=== PATIENT | male | born 1945 | race Caucasian/White ===

== ENCOUNTER 2022-05-30 18:26 | Inpatient (IN) | payer OTHER ==
[~2022-05-30] VITALS: Ht 182.9 cm; Wt 69.9 kg
[2022-05-30 19:27] LABS: Basophils # (auto) 0 10 ^3/uL (0-0.2); Basophils % (auto) 0.4 % (0.0-2.0); Eosinophils # (auto) 0 10 ^3/uL (0-0.8); Eosinophils % (auto) 0.1 % (0.0-7.0); Hematocrit 36.3 % (41.0-53.0); Hemoglobin 12.7 g/dL (13.5-17.5); Lymphocytes # (auto) 0.9 10 ^3/uL (0.4-5.4); Lymphocytes % (auto) 15.3 % (10.0-50.0); Mean Corpuscular Hemoglobin 31.5 pg (28.0-32.0); Monocytes # (auto) 0.4 10 ^3/uL (0-1.3); Monocytes % (auto) 6.7 % (0.0-12.0); Neutrophils # (auto) 4.3 10 ^3/uL (1.6-8.6); Neutrophils % (auto) 77.5 % (37.0-80.0); Nucleated Red Blood Cells % 0.2 %; Red Blood Cells 4.04 10^6/uL (4.5-5.90); Red Cell Distribution Width 13.5 % (11.8-14.3); White Blood Cell 5.6 10^3/uL (4.4-10.8)
[2022-05-30 19:45] LABS: Albumin 4.2 g/dL (3.4-5.0); BUN/Creatinine Ratio 15.4 (10.0-20.0); Calcium 9.3 mg/dL (8.5-10.1); Magnesium 2.3 mg/dL (1.6-2.6)
[2022-05-30 19:48] LABS: Bilirubin, Total 0.7 mg/dL (0.2-1.0); Total Protein 7.3 g/dL (6.4-8.2)
[2022-05-30] MEDS ORDERED: SODIUM CHLORIDE 0.9% 2,000 ML IV ONE (20:00)
[2022-05-30] MEDS ORDERED: HYDROcodone-ACET 5/325MG TAB PO PRN (22:30)
[2022-05-30] MEDS ORDERED: NITROGLYCERIN 0.4 MG SL TAB SL PRN (22:30)
[2022-05-30] MEDS ORDERED: DEXTROSE (50%) 50ML SYRG IV PRN (22:30)
[2022-05-30] MEDS ORDERED: MORPHINE SULFATE INJ 2 MG/ml SYRG IV PRN (22:30)
[2022-05-30] MEDS ORDERED: ACETAMINOPHEN 325 MG TAB PO PRN (22:30)
[2022-05-30] MEDS ORDERED: ONDANSETRON HCL 4 MG/2 ML VIAL IV PRN (22:30)
[2022-05-30] MEDS: SODIUM CHLORIDE 0.9% 1,000 ML IV SCH (22:30)
[2022-05-30] MEDS ORDERED: DOCUSATE SOD 100 MG CAP PO PRN (22:30)
[2022-05-31 05:51] LABS: Basophils # (auto) 0 10 ^3/uL (0-0.2); Basophils % (auto) 0.4 % (0.0-2.0); Eosinophils # (auto) 0 10 ^3/uL (0-0.8); Eosinophils % (auto) 0.1 % (0.0-7.0); Hematocrit 33.4 % (41.0-53.0); Hemoglobin 11.8 g/dL (13.5-17.5); Mean Corpuscular Hemoglobin 31.3 pg (28.0-32.0); Mean Corpuscular Hgb Conc. 35.2 g/dL (32.0-36.0); Mean Corpuscular Volume 88.8 fL (80.0-100.0); Monocytes # (auto) 0.3 10 ^3/uL (0-1.3); Monocytes % (auto) 6.8 % (0.0-12.0); Neutrophils # (auto) 3.5 10 ^3/uL (1.6-8.6); Neutrophils % (auto) 72.7 % (37.0-80.0); Red Blood Cells 3.77 10^6/uL (4.5-5.90); Red Cell Distribution Width 13.1 % (11.8-14.3); White Blood Cell 4.8 10^3/uL (4.4-10.8)
[2022-05-31 06:31] LABS: Potassium 5.1 mmol/L (3.5-5.1)
[2022-05-31 06:32] LABS: Urine Bacteria FEW /hpf (None Seen); Urine Blood Negative /uL (Negative); Urine Hyaline Cast FEW /lpf (0 - 2); Urine Specific Gravity 1.012 (1.001-1.035); Urine WBC 46 /hpf (0 - 3)
[2022-05-31 06:40] LABS: Albumin 3.8 g/dL (3.4-5.0); Bilirubin, Total 0.9 mg/dL (0.2-1.0); Calcium 8.9 mg/dL (8.5-10.1); Total Protein 6.6 g/dL (6.4-8.2)
[2022-05-31] MEDS: ACCU-CHEK COMFORT CURVE STRIP VI SCH ×4 (06:47→21:40)
[2022-05-31] MEDS: InsuLIN REG 1unit/0.01ml Soln (100units/ml) SC SCH ×4 (06:49→21:40)
[2022-05-31] MEDS: cefTRIAXone 1GM/50ML D5W 50 ML IV SCH ×2 (09:00→10:59)
[2022-05-31] MEDS: FAMOTIDINE (10MG/ML) 2ML VL IV SCH (10:36)
[2022-05-31] MEDS: ASPirin 81 mg TAB PO SCH (10:38)
[2022-05-31] MEDS ORDERED: ALBUTEROL SULF 2.5 MG/0.5ML(0.5%) NEB SOLN NEB PRN (12:15)
[2022-05-31] MEDS ORDERED: IPRATROPIUM BROM 0.5 MG/2.5ML INH SOL NEB PRN (12:15)
[2022-05-31 13:42] LABS: INR 1.03 (0.9-1.15); Partial Thromboplastin Time 27.1 sec (24.6-33.4)
[2022-05-31 13:57] LABS: Protein, Urine 33.7 mg/dL (0.0-11.9)
[2022-05-31 13:58] LABS: Amphetamine Screen, Urine NEGATIVE (NEGATIVE); Barbiturate Scree,Urine NEGATIVE (NEGATIVE); Benzodiazephine Screen, Urine NEGATIVE (NEGATIVE); Cannabinoid Screen, Urine NEGATIVE (NEGATIVE); Cocaine Screen, Urine NEGATIVE (NEGATIVE); Opiate Scree,Urine NEGATIVE (NEGATIVE); Phencyclidine Screen, Urine NEGATIVE (NEGATIVE); Sodium Urine 69 mmol/L (40-220)
[2022-05-31] MEDS: SODIUM CHLORIDE 0.9% 1,000 ML IV SCH (15:10)
[2022-05-31] MEDS ORDERED: TRIA0.02 TOP (19:29)
[2022-05-31] MEDS ORDERED: LOSA-69 PO (19:29)
[2022-05-31] MEDS ORDERED: ROSU1TAB14 PO (19:29)
[2022-05-31] MEDS: ATORVASTATIN 20 MG TAB PO SCH (21:44)
[2022-05-31 22:00] VITALS: BP 77/50
[2022-05-31 22:22] VITALS: BP 98/64
[2022-05-31 22:33] VITALS: BP 93/62
[2022-06-01 05:00] VITALS: BP 98/62
[2022-06-01 06:40] LABS: Basophils # (auto) 0 10 ^3/uL (0-0.2); Basophils % (auto) 0.4 % (0.0-2.0); Eosinophils # (auto) 0 10 ^3/uL (0-0.8); Eosinophils % (auto) 0.3 % (0.0-7.0); Hematocrit 30.3 % (41.0-53.0); Hemoglobin 10.6 g/dL (13.5-17.5); Lymphocytes # (auto) 1.3 10 ^3/uL (0.4-5.4); Lymphocytes % (auto) 31.8 % (10.0-50.0); Mean Corpuscular Hemoglobin 31.9 pg (28.0-32.0); Mean Corpuscular Hgb Conc. 34.9 g/dL (32.0-36.0); Mean Corpuscular Volume 91.5 fL (80.0-100.0); Monocytes # (auto) 0.4 10 ^3/uL (0-1.3); Monocytes % (auto) 8.7 % (0.0-12.0); Neutrophils # (auto) 2.5 10 ^3/uL (1.6-8.6); Neutrophils % (auto) 58.8 % (37.0-80.0); Red Blood Cells 3.31 10^6/uL (4.5-5.90); Red Cell Distribution Width 13.5 % (11.8-14.3); White Blood Cell 4.2 10^3/uL (4.4-10.8)
[2022-06-01] MEDS: ACCU-CHEK COMFORT CURVE STRIP VI SCH ×4 (06:50→22:31)
[2022-06-01] MEDS: InsuLIN REG 1unit/0.01ml Soln (100units/ml) SC SCH ×4 (06:50→22:00)
[2022-06-01 07:11] LABS: Potassium 4.3 mmol/L (3.5-5.1)
[2022-06-01 07:23] LABS: BUN/Creatinine Ratio 20.7 (10.0-20.0); Calcium 8.8 mg/dL (8.5-10.1)
[2022-06-01 08:00] VITALS: BP 108/60
[2022-06-01 09:00] VITALS: BP 108/60
[2022-06-01 09:55] LABS: Hepatitis B Surface Antibody Negative (Negative)
[2022-06-01 10:03] LABS: Hepatitis A Total Antibody Negative (Negative)
[2022-06-01] MEDS: cefTRIAXone 1GM/50ML D5W 50 ML IV SCH (10:25)
[2022-06-01] MEDS: FAMOTIDINE (10MG/ML) 2ML VL IV SCH (10:27)
[2022-06-01] MEDS: ASPirin 81 mg TAB PO SCH (10:27)
[2022-06-01 11:53] LABS: Hepatitis C Antibody Negative (Negative)
[2022-06-01 12:30] LABS: Folate (Folic Acid) 19.77 ng/mL (5.38-24)
[2022-06-01 13:00] VITALS: BP 100/62
[2022-06-01] MEDS: SODIUM BICARB 50ML SYR 50 ML in SOD CHL 0.45% 1,000 ML IV SCH ×3 (14:53→22:50)
[2022-06-01 16:54] VITALS: BP 108/61
[2022-06-01 22:00] VITALS: BP 112/74
[2022-06-01] MEDS: ATORVASTATIN 20 MG TAB PO SCH (22:31)
[2022-06-02 05:00] VITALS: BP 123/89
[2022-06-02 06:39] LABS: Basophils # (auto) 0 10 ^3/uL (0-0.2); Basophils % (auto) 0.4 % (0.0-2.0); Eosinophils # (auto) 0.1 10 ^3/uL (0-0.8); Eosinophils % (auto) 2.5 % (0.0-7.0); Hematocrit 30.8 % (41.0-53.0); Hemoglobin 10.8 g/dL (13.5-17.5); Lymphocytes # (auto) 1.5 10 ^3/uL (0.4-5.4); Lymphocytes % (auto) 39.3 % (10.0-50.0); Mean Corpuscular Hemoglobin 31.7 pg (28.0-32.0); Mean Corpuscular Hgb Conc. 35.1 g/dL (32.0-36.0); Mean Corpuscular Volume 90.1 fL (80.0-100.0); Monocytes # (auto) 0.2 10 ^3/uL (0-1.3); Monocytes % (auto) 5.6 % (0.0-12.0); Neutrophils % (auto) 52.2 % (37.0-80.0); Nucleated Red Blood Cells % 0.3 %; Red Blood Cells 3.42 10^6/uL (4.5-5.90); Red Cell Distribution Width 13.2 % (11.8-14.3); White Blood Cell 3.9 10^3/uL (4.4-10.8)
[2022-06-02] MEDS: SODIUM BICARB 50ML SYR 50 ML in SOD CHL 0.45% 1,000 ML IV SCH ×2 (06:45→10:43)
[2022-06-02] MEDS: ACCU-CHEK COMFORT CURVE STRIP VI SCH ×4 (06:47→22:12)
[2022-06-02] MEDS: InsuLIN REG 1unit/0.01ml Soln (100units/ml) SC SCH ×4 (06:47→22:00)
[2022-06-02 07:27] LABS: Albumin 3.3 g/dL (3.4-5.0); BUN/Creatinine Ratio 21.7 (10.0-20.0); Bilirubin, Total 0.8 mg/dL (0.2-1.0); Calcium 8.9 mg/dL (8.5-10.1); Total Protein 6.4 g/dL (6.4-8.2)
[2022-06-02 08:00] VITALS: BP 118/69
[2022-06-02 08:06] LABS: RPR Non Reactive (Non Reactive)
[2022-06-02] MEDS: cefTRIAXone 1GM/50ML D5W 50 ML IV SCH (08:25)
[2022-06-02] MEDS: ASPirin 81 mg TAB PO SCH (08:25)
[2022-06-02 08:30] VITALS: BP 118/69
[2022-06-02 12:34] VITALS: BP 122/74
[2022-06-02] MEDS ORDERED: CEPH-510 PO (13:57)
[2022-06-02 16:37] VITALS: BP 125/65
[2022-06-02] MEDS: ATORVASTATIN 20 MG TAB PO SCH (22:12)
[2022-06-02 22:53] VITALS: BP 122/70
[2022-06-03 05:21] VITALS: BP 104/64
[2022-06-03] MEDS: InsuLIN REG 1unit/0.01ml Soln (100units/ml) SC SCH ×2 (06:19→11:30)
[2022-06-03] MEDS: ACCU-CHEK COMFORT CURVE STRIP VI SCH ×2 (06:19→11:45)
[2022-06-03 09:00] VITALS: BP 102/65
[2022-06-03 09:51] LABS: Albumin 3.2 g/dL (3.4-5.0); Calcium 8.7 mg/dL (8.5-10.1); Potassium 3.8 mmol/L (3.5-5.1)
[2022-06-03] MEDS: cefTRIAXone 1GM/50ML D5W 50 ML IV SCH (09:52)
[2022-06-03] MEDS: ASPirin 81 mg TAB PO SCH (09:52)
[2022-06-03] MEDS: SODIUM BICARB 50ML SYR 50 ML in SOD CHL 0.45% 1,000 ML IV SCH ×2 (09:52→14:48)
[2022-06-03 09:55] LABS: BUN/Creatinine Ratio 15.2 (10.0-20.0); Bilirubin, Total 0.8 mg/dL (0.2-1.0); Total Protein 6.3 g/dL (6.4-8.2)
[2022-06-03 13:00] VITALS: BP 125/75
== END 2022-06-03 15:46 | disposition home or self-care (01) | DRG 682 ==
LOC: EDBD 18:26 → ER 18:26 → TELE 22:30 → TELE-CENTR 05-31 18:48 → CENTRAL 06-02 00:53
PROVIDERS: ADMIT Nurse Practitioner Family; ATTEND Internal Medicine
DX: N17.0 Acute kidney failure with tubular necrosis (principal); U07.1 COVID-19; E87.1 Hypo-osmolality and hyponatremia; N30.01 Acute cystitis with hematuria; D69.6 Thrombocytopenia, unspecified; I12.9 Hypertensive chronic kidney disease with stage 1 through stage 4 chronic kidney disease, or unspecified chronic kidney disease; E11.22 Type 2 diabetes mellitus with diabetic chronic kidney disease; N18.9 Chronic kidney disease, unspecified; R29.6 Repeated falls; R62.7 Adult failure to thrive; S09.90XA Unspecified injury of head, initial encounter; W18.39XA Other fall on same level, initial encounter; Z85.46 Personal history of malignant neoplasm of prostate; Z68.20 Body mass index [BMI] 20.0-20.9, adult; Y93.89 Activity, other specified; Y92.89 Other specified places as the place of occurrence of the external cause; Y99.8 Other external cause status
CPT/HCPCS: 36415; 70450; 71045; 76705; 76775; 80048; 80053; 80307; 81001; 82105; 82306; 82570; 82607; 82746; 82962; 83036; 83735; 83935; 83970; 84100; 84156; 84300; 84443; 84484; 85025; 85610; 85730; 86592; 86704; 86706; 86708; 86803; 87086; 87088; 87186; 87340; 87426; 93005; 96361; 96374; 97110; 97116; 97163; 97530; G0378; J0696; J3490

== ENCOUNTER 2024-04-21 15:45 | Inpatient (IN) | payer OTHER ==
[~2024-04-21] VITALS: Ht 172.7 cm; Wt 56.1 kg
[~2024-04-21 15:45] MED LIST: CEPH-510 PO; LOSA-534 PO; ROSU20TA56 PO; TRIA0.02 TOP
--- NOTE | 2024-04-21 15:53 | ED.PDOC ---
History of Present Illness HPI Comments M BIBA w/ no prior Hx associated to the c/c of low Blood Pressure. EMS report the pt was at the [facility] for a Cortisone injection on the right shoulder when the pt's Blood pressure was in the 80's. The facility called EMS and when EMS arrived on scene the pt informed EMS that he has been "eating less ". Currently the pt is 106/60. Pt reports that he drove to [place] w/ his friend in the vehicle, and states that he has been having LLQ pain where there is a hernia and admits to having a low HR. PMHx of CKD, Osteoporosis, High Lipids, CHF, Prostate Cancer, Enlarged Heart and DM. SHx of Prostate Cancer Sx, Cataract Sx, Tonsillectomy and Right Knee Sx. Family Hx of Cancer and Heart Caryl. Denies chills, fever, N/V/D, SOB, CP or other associated symptom's, modifiers, or recent injuries or sick contact at this time. Time Seen by MD: 15:45 Reviewed Notes: Nurses Notes, Medications, Allergies Allergies: Coded Allergies: NO KNOWN ALLERGIES (Unverified , 05/30/22) Home Meds Active Scripts Cephalexin ( Keflex 500) 500 Mg Cap, 1 CAP PO TID for 7 Days, #21 CAP Prov:ELICEO GRANT MD 06/02/22 Reported Medications Rosuvastatin Calcium (Rosuvastatin Calcium) 20 Mg Tab, 1 TAB PO 05/31/22 Losartan Potassium (Losartan Potassium) 50 Mg Tab, 1 TAB PO DAILY 05/31/22 Triamcinolone Acetonide (Triamcinolone Acetonide) 0.025 % Cre, TOP 05/31/22 Information Source: Patient, Emergency Med Personnel Mode of Arrival: EMS Severity: Moderate Timing: Minutes Duration: Since onset, Minutes Prehospital treatment: None Past Medical History PAST MEDICAL HISTORY: Cancer (Prostate), CHF, CKF, DM, High Lipids Past Medical History (Other): osteoporosis, Enlarged Heart Surgical History: Tonsillectomy Surgical History (Other): Cataract Sx, Prostate Cancer Sx, Right Knee Family History Family History: Reviewed,noncontributory to illness, Unknown Social History Smoker: Non-Smoker Alcohol: Denies ETOH Use Drugs: Denies Drug Use Lives In: Home Constitutional: reports: others (Low BP); denies: chills, diaphoresis, fatigue, fever, malaise, sweats, weakness EENTM: denies: blurred vision, double vision, ear bleeding, ear discharge, ear drainage, ear pain, ear ringing, eye pain, eye redness, hearing loss, mouth pain, mouth swelling, nasal discharge, nose bleeding, nose congestion, nose pain, photophobia, tearing, throat pain, throat swelling, voice changes, others Respiratory: denies: cough, hemoptysis, orthopnea, SOB at rest, shortness of breath, SOB with excertion, stridor, wheezing, others Cardiovascular: denies: chest pain, dizzy spells, diaphoresis, Dyspnea on exertion, edema, irregular heart beat, left arm pain, lightheadedness, palpitations, PND, syncope, others Gastrointestinal: reports: abdominal pain; denies: abdomen distended, blood streaked bowels, constipated, diarrhea, dysphagia, difficulty swallowing, hematemesis, melena, nausea, poor appetite, poor fluid intake, rectal bleeding, rectal pain, vomiting, others Genitourinary: denies: burning, dysuria, flank pain, frequency, hematuria, incontinence, penile discharge, penile sore, pain, testicle pain, testicle swelling, urgency, others Neurological: denies: dizziness, fainting, headache, left sided numbness, left sided weakness, numbness, paresthesia, pre-existing deficit, right sided numbness, right sided weakness, seizure, speech problems, tingling, tremors, weakness, others Musculoskeletal: denies: back pain, gout, joint pain, joint swelling, muscle pain, muscle stiffness, neck pain, others Integumetry: denies: bruises, change in color, change in hair/nails, dryness, laceration, lesions, lumps, rash, wounds, others Allergic/Immunocompromised: denies: Difficulty Healing, Frequent Infections, Hives, Itching, others Hematologic/Lymphatic: denies: anemia, blood clots, easy bleeding, easy bruising, swollen glands, others Endocrine: denies: excessive hunger, excessive sweating, excessive thirst, excessive urination, flushing, intolerance to cold, intolerance to heat, unexpla ined weight gain, unexplained weight loss, others Psychiatric: denies: anxiety, bipolar disorder, depression, hopeless, panic disorder, schizophrenia, sleepless, suicidal, others All Other Systems: Reviewed and Negative Physical Exam General Appearance: Moderate Distress HEENT: Normal ENT Inspection, Pharynx Normal, TMs Normal Neck: Full Range of Motion, Non-Tender, Normal, Normal Inspection Respiratory: Chest Non-Tender, Lungs Clear, No Accessory Muscle Use, No Respiratory Distress, Normal Breath Sounds Cardiovascular: Bradycardia, No Edema, No JVD, No Murmur, No Gallop Breast Exam: Deferred Gastrointestinal: No Organomegaly, Non Tender, No Pulsatile Mass, Normal Bowel Sounds, Soft Genitalia: Deferred Pelvic: Deferred Rectal: Deferred Extremities: No calf tenderness, Normal capillary refill, Normal inspection, Normal range of motion, Non-tender, No pedal edema Musculoskeletal : Apperance: Normal Neurologic: 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 Was a procedure done?: No EKG EKG : Pulse Rate (adult): 52 [place]: Normal Cardiac Rhythm: NSR Block: None Hypertrophy: None ST: Normal Differential Dx Considerations may include: Hypotension, generalized weakness, electrolyte imbalance X-Ray, Labs, Meds, VS Vital Signs Date Time Temp Pulse Resp B/P (MAP) Pulse Ox O2 Delivery O2 Flow Rate FiO2 04/21/24 16:43 52 18 95 Room Air* 0 21 04/21/24 15:59 98.4 54 16 112/70 (84) 97 04/21/24 15:53 52 Lab Test 04/21/24 17:17 04/21/24 16:03 Range/Units Troponin I High Sensitivity Pending 5 </=54 ng/L White Blood Count 4.5 4.4-10.8 10^3/uL Red Blood Count 3.24 L 4.5-5.90 10^6/uL Hemoglobin 10.5 L 13.5-17.5 g/dL Hematocrit 29.8 L 41.0-53.0 % Mean Corpuscular Volume 92.0 80.0-100.0 fL Mean Corpuscular Hemoglobin 32.3 H 28.0-32.0 pg Mean Corpuscular Hemoglobin Concent 35.1 32.0-36.0 g/dL Red Cell Distribution Width 12.4 11.8-14.3 % Platelet Count 112 L 140-450 10^3/uL Mean Platelet Volume 8.8 6.9-10.8 fL Neutrophils (%) (Auto) 55.5 37.0-80.0 % Lymphocytes (%) (Auto) 36.6 10.0-50.0 % Monocytes (%) (Auto) 4.7 0.0-12.0 % Eosinophils (%) (Auto) 2.2 0.0-7.0 % Basophils (%) (Auto) 1.0 0.0-2.0 % Neutrophils # (Auto) 2.5 1.6-8.6 10 ^3/uL Lymphocytes # (Auto) 1.7 0.4-5.4 10 ^3/uL Monocytes # (Auto) 0.2 0-1.3 10 ^3/uL Eosinophils # (Auto) 0.1 0-0.8 10 ^3/uL Basophils # (Auto) 0 0-0.2 10 ^3/uL Nucleated Red Blood Cells 0.1 % Sodium Level 141 136-145 mmol/L Potassium Level 4.0 3.5-5.1 mmol/L Chloride Level 108 H 98-107 mmol/L Carbon Dioxide Level 25 20-31 mmol/L Anion Gap 8 5-15 Blood Urea Nitrogen 36 H 9-23 mg/dL Creatinine 1.95 H 0.700-1.30 mg/dL Glomerular Filtration Rate Calc 34 >90 mL/min BUN/Creatinine Ratio 18.5 10.0-20.0 Serum Glucose 90 74-106 mg/dL Calcium Level 10.8 H 8.7-10.4 mg/dL The patient's CBC shows a hemoglobin of 10.5 and hematocrit of 29.8 The 1st troponin level is negative The chemistry panel shows a BUN of 36 and a creatinine of 1.95 The patient remained somewhat bradycardic with the weakness The patient was being admitted to the hospitalist The diagnosis is symptomatic bradycardia and hypotension We contacted [place] and they gave us authorization for admission secondary to the patient being unstable for transfer The authorization #[id number] Images Reviewed?: Images reviewed and evaluated by me Time of 1ST Reevaluation: 16:15 Reevaluation 1ST: Unchanged Patient Education/Counseling: Diagnosis, Treatment, Prognosis Family Education/Counseling: No Family Present Departure 1 Departure Time of Disposition: 17:57 Impression: Primary Impression: Hypotension Qualified Codes: I95.0 - Idiopathic hypotension Additional Impression: Symptomatic bradycardia Disposition: ADMITTED INPATIENT Admit to: Tele Condition: Fair Critical Care Note Critical Care Time?: No Stability Stability form required: Yes Unstable for transfer: Telemetry monitoring (Telemetry monitoring required), ED Physician Assesment (Clinical assesment) Heart Score Heart Score: Heart Score Response (Comments) Value History N/A 0 EKG N/A 0 Age N/A 0 Risk Factors N/A 0 Troponin N/A 0 Total 0 I personally scribed for ALCIDES DIAZ MD ([email or web address]) on 04/21/24 at 15:53. Electronically submitted by Jermaine Ortiz ([email or web address]). ALCIDES DIAZ MD Apr 21, 2024 15:53
[2024-04-21 16:32] LABS: Basophils # (auto) 0 10 ^3/uL (0-0.2); Eosinophils # (auto) 0.1 10 ^3/uL (0-0.8); Eosinophils % (auto) 2.2 % (0.0-7.0); Hematocrit 29.8 % (41.0-53.0); Hemoglobin 10.5 g/dL (13.5-17.5); Lymphocytes # (auto) 1.7 10 ^3/uL (0.4-5.4); Lymphocytes % (auto) 36.6 % (10.0-50.0); Mean Corpuscular Hemoglobin 32.3 pg (28.0-32.0); Mean Corpuscular Hgb Conc. 35.1 g/dL (32.0-36.0); Monocytes # (auto) 0.2 10 ^3/uL (0-1.3); Monocytes % (auto) 4.7 % (0.0-12.0); Neutrophils # (auto) 2.5 10 ^3/uL (1.6-8.6); Neutrophils % (auto) 55.5 % (37.0-80.0); Nucleated Red Blood Cells % 0.1 %; Platelet Count (auto) 112 10^3/uL (140-450); Red Blood Cells 3.24 10^6/uL (4.5-5.90); Red Cell Distribution Width 12.4 % (11.8-14.3); White Blood Cell 4.5 10^3/uL (4.4-10.8)
[2024-04-21 16:34] LABS: Sodium 141 mmol/L (136-145)
[2024-04-21 16:35] LABS: Anion Gap 8 (5-15); Carbon Dioxide 25 mmol/L (20-31)
[2024-04-21 16:40] LABS: BUN/Creatinine Ratio 18.5 (10.0-20.0); Glucose 90 mg/dL (74-106)
[2024-04-21 16:43] VITALS: PULSE 52; RESP 18; O2SAT 95
[2024-04-21 16:46] LABS: Blood Urea Nitrogen 36 mg/dL (9-23); Calcium 10.8 mg/dL (8.7-10.4); Chloride 108 mmol/L (98-107)
[2024-04-21] MEDS: SODIUM CHLORIDE 0.9% 500 ML IV ONE (18:00)
[2024-04-21 18:07] VITALS: PULSE 60; RESP 18; O2SAT 99
--- NOTE | 2024-04-21 19:58 | ECG ---
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
[2024-04-21] MEDS ORDERED: HYDROcodone-ACET 5/325MG TAB PO PRN (20:00)
[2024-04-21] MEDS ORDERED: ACETAMINOPHEN 325 MG TAB PO PRN (20:00)
[2024-04-21] MEDS ORDERED: DOCUSATE SOD 100 MG CAP PO PRN (20:00)
[2024-04-21] MEDS ORDERED: ONDANSETRON HCL 4 MG/2 ML VIAL IV PRN (20:00)
[2024-04-21] MEDS ORDERED: DEXTROSE (50%) 50ML SYRG IV PRN (20:45)
[2024-04-21 21:00] VITALS: PULSE 60; RESP 16; O2SAT 98
--- NOTE | 2024-04-21 21:37 | DVHHP2 ---
History of Present Illness Reason for Visit: Symptomatic bradycardia History of Present Illness The patient is a 78-year-old male with multiple past medical history including prostate cancer, CHF, DM, and hyperlipidemia who presented to [facility] ED with complaint of low blood pressure. Patient reports has been e xperiencing left lower quadrant abdominal pain. Patient was seen and evaluated in the ED, laboratory data shows WBC 4.5, hemoglobin 10.5, hematocrit 29.8, platelets 112, sodium 141, potassium 4.0, BUN 36, creatinine 1.95, GFR 34, glucose 90, troponin 5, blood pressure 115/70, heart rate 52 trending up to 67, temperature 98.6 F, O2 saturation 99% on oxygen. Patient was given IV fluid normal saline, please see medication orders section in the computer. On my assessment, patient denies chest pain, no headache, no dizziness, no diaphoresis, no loss of consciousness, no diarrhea, no nausea, no vomiting, no fever, no chills. Patient was admitted for further evaluation and medical management. Past Medical History Cancer (Prostate), CHF, CKF, DM, High Lipids, osteoporosis, Enlarged Heart Past Surgical History Tonsillectomy, Cataract Sx, Prostate Cancer Sx, Right Knee surgery Family History Reviewed, noncontributory to the management of this case. Past Social History The patient lives at home, denies smoking, alcohol or illicit drugs abuse. Review of Systems Constitutional: Yes: Weakness; No: Fever, Chills, Sweats, Malaise, Other Eyes: No: Pain, Vision change, Conjunctivae inflammation, Eyelid inflammation, Other, Redness ENT: No: Ear pain, Ear discharge, Nose pain, Nose discharge, Nose congestion, Mouth pain, Mouth swelling, Throat pain, Throat swelling, Other Respiratory: No: Cough, Dry, Shortness of breath, SOB with excertion, Wheezing, Hemoptysis, Pleuritic Pain, Sputum, Wheezing, Other Cardiovascular: Other (Hypotension); No: Chest Pain, Palpitations, Orthopnea, Paroxysmal Noc. Dyspnea, Edema, Lt Headedness Gastrointestinal: Abdominal Pain; No: Nausea, Vomiting, Diarrhea, Constipation, Melena, Hematochezia, Other Genitourinary: No Dysuria, No Frequency, No Incontinence, No Hematuria, No Retention, No Other Musculoskeletal: No: other, neck pain, shoulder pain, arm pain, back pain, hand pain, leg pain, foot pain Skin: No: Rash, Lesions, Jaundice, Bruising, Other Neurological: No: Weakness, Numbness, Incoordination, Change in speech, Confusion, Seizures, Other Allergies: Coded Allergies: NO KNOWN ALLERGIES (Unverified , 05/30/22) Medications Current Medications Medications Dose Ordered Sig/Irma Route Start Time Stop Time Status Last Admin Dose Admin Atorvastatin Calcium 10 mg HS PO 04/21/24 22:00 Aspirin 81 mg DAILY PO 04/22/24 10:00 Sodium Chloride 10 ml Q8HR IV 04/21/24 22:00 Acetaminophen/ Hydrocodone Bitart 1 tab Q4HP PRN PO 04/21/24 20:00 Ondansetron HCl 4 mg Q4HP PRN IV 04/21/24 20:00 Docusate Sodium 100 mg BIDPRN PRN PO 04/21/24 20:00 Acetaminophen 650 mg Q6HP PRN PO 04/21/24 20:00 Diagnostic Test (Pha) 1 strip ACHS 04/21/24 22:00 Insulin Human Regular ACHS SC 04/21/24 22:00 Dextrose 50 ml UD PRN IV 04/21/24 20:45 Exam Vital Signs Vital Signs Date Time Temp Pulse Resp B/P (MAP) Pulse Ox O2 Delivery O2 Flow Rate FiO2 04/21/24 20:30 98.1 70 17 124/76 (92) 94 98.1 04/21/24 18:07 Room Air* 0 21 General Appearance: Alert, Oriented X3, Cooperative, No acute distress HEENT: Atraumatic, PERRLA, EOMI, Mucous membr. moist/pink Respiratory: Clear to auscultation, Normal air movement Cardiovascular: Regular rate, Normal S1, Normal S2, No murmurs Abdominal: Normal bowel sounds, Soft, No tenderness, No hepatospenomegaly, No masses Extremities: No clubbing, No cyanosis, No edema, Normal pulses, No tenderness/swelling Skin: No rashes, No breakdown, No significant lesion Neuro: Normal speech, Normal tone, Sensation intact, Cranial nerves 3-12 NL, Reflexes 2+, Other (Generalized weakness) Psych/Mental Status: Mental status NL, Mood NL Labs/Xrays Labs Test 04/21/24 17:17 04/21/24 16:03 Range/Units Troponin I High Sensitivity 5 </=54 ng/L White Blood Count 4.5 4.4-10.8 10^3/uL Red Blood Count 3.24 L 4.5-5.90 10^6/uL Hemoglobin 10.5 L 13.5-17.5 g/dL Hematocrit 29.8 L 41.0-53.0 % Mean Corpuscular Volume 92.0 80.0-100.0 fL Mean Corpuscular Hemoglobin 32.3 H 28.0-32.0 pg Mean Corpuscular Hemoglobin Concent 35.1 32.0-36.0 g/dL Red Cell Distribution Width 12.4 11.8-14.3 % Platelet Count 112 L 140-450 10^3/uL Mean Platelet Volume 8.8 6.9-10.8 fL Neutrophils (%) (Auto) 55.5 37.0-80.0 % Lymphocytes (%) (Auto) 36.6 10.0-50.0 % Monocytes (%) (Auto) 4.7 0.0-12.0 % Eosinophils (%) (Auto) 2.2 0.0-7.0 % Basophils (%) (Auto) 1.0 0.0-2.0 % Neutrophils # (Auto) 2.5 1.6-8.6 10 ^3/uL Lymphocytes # (Auto) 1.7 0.4-5.4 10 ^3/uL Monocytes # (Auto) 0.2 0-1.3 10 ^3/uL Eosinophils # (Auto) 0.1 0-0.8 10 ^3/uL Basophils # (Auto) 0 0-0.2 10 ^3/uL Nucleated Red Blood Cells 0.1 % Sodium Level 141 136-145 mmol/L Potassium Level 4.0 3.5-5.1 mmol/L Chloride Level 108 H 98-107 mmol/L Carbon Dioxide Level 25 20-31 mmol/L Anion Gap 8 5-15 Blood Urea Nitrogen 36 H 9-23 mg/dL Creatinine 1.95 H 0.700-1.30 mg/dL Glomerular Filtration Rate Calc 34 >90 mL/min BUN/Creatinine Ratio 18.5 10.0-20.0 Serum Glucose 90 74-106 mg/dL Calcium Level 10.8 H 8.7-10.4 mg/dL B-Type Natriuretic Peptide 73.75 0-100 pg/mL Assessment/Plan Assessment/Plan Generalized weakness Hypotension, unspecified Hypotension Idiopathic hypotension Acute renal injury Symptomatic bradycardia Plan 1. Admit to telemetry unit 2. Breathing treatment 3. Pain control management 4. Management of fluids and electrolytes 5. Consultation for hospitalist 6. Diagnostic tests chest x-ray 7. DVT prophylaxis-on aspirin 8. Repeat labs CBC, CMP in a.m. 9. Continue with current medical management 10. Treatment plan discussed with patient and RN. Patient verbalized understanding. Plan discussed with: Patient, Other (RN) My Orders Orders - LESLYE JUAREZ DNP Procedure Category Date Status Time Atorvastatin (Lipitor) PHA 04/21/24 In Process 22:00 Aspirin Tablet PHA 04/22/24 In Process 10:00 Allergies KENNY 04/21/24 In Process 19:51 Code Status CODE 04/21/24 Transmitted 19:51 Sodium Chloride Lock PHA 04/21/24 In Process (Saline Lock Ns) 22:00 Oxygen Per Hour RT 04/21/24 Transmitted 19:51 Hydrocodone-Acet PHA 04/21/24 In Process 5/325mg Tab ([place] 20:00 Ondansetron Hcl PHA 04/21/24 In Process (Zofran) 20:00 Docusate Sodium PHA 04/21/24 In Process Capsule ([place] 20:00 Complete Blood Count LAB 04/22/24 Verified 04:00 Comprehensive LAB 04/22/24 Verified Metabolic Panel 04:00 Cardiac DIET 04/22/24 Transmitted Diet-2gna,Lofat,Lochol Breakfast Condition: Serious KENNY 04/21/24 In Process 19:51 Acetaminophen Tablet PHA 04/21/24 In Process (Tylenol Tablet) 20:00 Bedrest With Bathroom KENNY 04/21/24 In Process Privileg 19:51 Sequential KENNY 04/21/24 In Process Compression Device *[facility]. [facility] CONS 04/21/24 Transmitted -[place] 19:51 * Cardiology Consult CONS 04/21/24 Transmitted 19:54 Glucose Blood PHA 04/21/24 In Process (Accu-Chek Comfort 22:00 Insulin R (Human) PHA 04/21/24 In Process (Insulin R) 22:00 Dextrose 50% Syringe PHA 04/21/24 In Process 20:45 Problem List: (1) Generalized weakness (2) Hypotension (3) Idiopathic hypotension (4) Hypotension, unspecified (5) Acute renal injury (6) Symptomatic bradycardia Date of Service: Apr 21, 2024 Billing Provider: LESLYE JUAREZ DNP Common Visit Codes: 95188-XQGJBQI INP/OBS CARE (HIGH) LESLYE JUAREZ DNP Apr 21, 2024 21:37
[2024-04-21 21:44] LABS: Urine Bacteria None Seen /hpf (None Seen)
[2024-04-21] MEDS ORDERED: NITROGLYCERIN 0.4 MG SL TAB SL PRN (21:45)
[2024-04-21] MEDS ORDERED: MORPHINE SULFATE INJ 2 MG/ml SYRG IV PRN (21:45)
[2024-04-21 21:57] LABS: Urine Blood 3+ /uL (Negative); Urine Clarity Clear (Clear); Urine Color Light-Yellow (Yellow); Urine Hyaline Cast FEW /lpf (0 - 2); Urine Protein, UAD 3+ (Negative); Urine Specific Gravity 1.016 (1.001-1.035); Urine Squamous Epithelial Cell FEW /hpf (<5); Urine Urobilinogen Normal (Negative); Urine WBC 2 /HPF (0-3)
[2024-04-21] MEDS: InsuLIN REG 1unit/0.01ml Soln (100units/ml) SC SCH (22:00)
[2024-04-21] MEDS: SODIUM CHLOR 0.9% PF (SALINE LOCK) 10ML VIAL/SYR IV SCH (22:02)
[2024-04-21] MEDS: ACCU-CHEK COMFORT CURVE STRIP VI SCH (22:04)
[2024-04-21] MEDS: ATORVASTATIN 20 MG TAB PO SCH (22:04)
[2024-04-21 23:50] VITALS: BP 107/71; PULSE 70; RESP 18; TEMP 97.2; O2SAT 92
[2024-04-22] VITALS (9 sets, daily range): BP systolic 100–141; BP diastolic 60–72; PULSE 51–70; RESP 16–20; TEMP 97.2–98.1; O2SAT 92–98
[2024-04-22 06:35] LABS: Basophils # (auto) 0 10 ^3/uL (0-0.2); Eosinophils # (auto) 0.1 10 ^3/uL (0-0.8); Hematocrit 28.4 % (41.0-53.0); Hemoglobin 9.9 g/dL (13.5-17.5); Lymphocytes # (auto) 1.8 10 ^3/uL (0.4-5.4); Lymphocytes % (auto) 44.3 % (10.0-50.0); Mean Corpuscular Hemoglobin 32.3 pg (28.0-32.0); Mean Corpuscular Hgb Conc. 34.9 g/dL (32.0-36.0); Mean Corpuscular Volume 92.7 fL (80.0-100.0); Monocytes # (auto) 0.2 10 ^3/uL (0-1.3); Monocytes % (auto) 5.1 % (0.0-12.0); Neutrophils # (auto) 1.9 10 ^3/uL (1.6-8.6); Neutrophils % (auto) 46.6 % (37.0-80.0); Nucleated Red Blood Cells % 0.1 %; Platelet Count (auto) 94 10^3/uL (140-450); Red Blood Cells 3.07 10^6/uL (4.5-5.90); Red Cell Distribution Width 12.6 % (11.8-14.3); White Blood Cell 4.1 10^3/uL (4.4-10.8)
[2024-04-22 06:52] LABS: Anion Gap 9 (5-15); BUN/Creatinine Ratio 17.2 (10.0-20.0); Carbon Dioxide 23 mmol/L (20-31); Glucose 80 mg/dL (74-106); Potassium 3.9 mmol/L (3.5-5.1); Sodium 143 mmol/L (136-145)
[2024-04-22 06:53] LABS: Bilirubin, Total 0.6 mg/dL (0.2-1.0)
[2024-04-22 06:55] LABS: Alanine Aminotransferase 73 U/L (7-40); Albumin 4.1 g/dL (3.2-4.8); Alkaline Phosphatase 30 U/L (46-116); Aspartate Aminotransferase 51 U/L (13-40); Blood Urea Nitrogen 33 mg/dL (9-23); Chloride 111 mmol/L (98-107)
[2024-04-22] MEDS: ASPirin 81 mg TAB PO SCH (09:32)
[2024-04-22] MEDS ORDERED: GLUCAGON EMERG KIT 1mg/1ml IV ONE (11:45)
--- NOTE | 2024-04-22 12:00 | DVHINCON2 ---
Date Seen: Apr 22, 2024 Referring Physician UYEN Riddle Reason for Consultation Hypotension History of Present Illness This is a pleasant 78-year-old man who presented to the emergency room via EMS with a chief complaint of hypotension. The patient reports he was a local [facility] acquiring a cortisone injection of the right shoulder when he was found with a systolic blood pressure of 88 mmHg. Upon arrival to the emergency room he underwent a 12 lead electrocardiogram revealing a sinus bradycardia rhythm with an associated first-degree atrioventricular block at 52 bpm. nurse monitoring reviewed indicating a sinus bradycardia rhythm as low as 48 bpm without evidence of high-degree atrioventricular blocks or sinus pauses. The patient is currently taking losartan 25 q.d. and bisoprolol 5 mg b.i.d. Denies chest pain, palpitations, blurry vision, HAs, or syncopal events. Complains of positional dizziness from a sitting to standing position during the past two days. He also complains of mid abdominal pain without N/V/D/constipation. Significant medical history includes congestive heart failure, pof-rbastjb-pdavcxoot diabetes mellitus, hypertension, dyslipidemia, chronic thrombocytopenia, chronic kidney disease, arthritis, and umbilical hernia. Past Medical History Past medical history reviewed. No other significant than mentioned above. Past Surgical History Cataracts Prostate Right knee Tonsillectomy Family History: Cardiovascular disease G8 FATHER, FH: cancer G8 MOTHER, Family History Family history reviewed. Social History Denies the use of illicit drugs, alcohol, or tobacco use. Allergies: Coded Allergies: NO KNOWN ALLERGIES (Unverified , 05/30/22) Home Meds Active Scripts Cephalexin ( Keflex 500) 500 Mg Cap, 1 CAP PO TID for 7 Days, #21 CAP Prov:ELICEO GRANT MD 06/02/22 Reported Medications Rosuvastatin Calcium (Rosuvastatin Calcium) 20 Mg Tab, 1 TAB PO 05/31/22 Losartan Potassium (Losartan Potassium) 50 Mg Tab, 1 TAB PO DAILY 05/31/22 Discontinued Reported Medications Triamcinolone Acetonide (Triamcinolone Acetonide) 0.025 % Cre, TOP 05/31/22 Home Meds Home medications reviewed. Current Medications Current Medications Medications (Trade) Dose Ordered Sig/Irma Route PRN Reason Start Time Stop Time Status Last Admin Atorvastatin Calcium (Lipitor) 10 mg HS PO 04/21/24 22:00 04/21/24 22:04 Aspirin 81 mg DAILY PO 04/22/24 10:00 04/22/24 09:32 Sodium Chloride (Saline Lock Ns) 10 ml Q8HR IV 04/21/24 22:00 04/22/24 06:12 Acetaminophen/ Hydrocodone Bitart (Wilson 5/325MG Tab) 1 tab Q4HP PRN PO MODERATE PAIN (4-6 PAIN SCALE) 04/21/24 20:00 Ondansetron HCl (Zofran) 4 mg Q4HP PRN IV NAUSEA / VOMITING 04/21/24 20:00 Docusate Sodium (Colace Capsule) 100 mg BIDPRN PRN PO FOR CONSTIPATION 04/21/24 20:00 Acetaminophen (Tylenol Tablet) 650 mg Q6HP PRN PO PAIN SCALE 1-3 OR TEMP>100.4 04/21/24 20:00 Diagnostic Test (Pha) (Accu-Chek Comfort Curve T) 1 strip ACHS 04/21/24 22:00 04/22/24 06:29 Insulin Human Regular (InsuLIN R) ACHS SC 04/21/24 22:00 Dextrose 50 ml UD PRN IV Blood Sugar LESS THAN 60 04/21/24 20:45 Nitroglycerin (Ntrostat Sublingual) 0.4 mg Q5MINP PRN SL FOR CHEST PAIN 04/21/24 21:45 Morphine Sulfate 2 mg Q30M PRN IV FOR CHEST PAIN 04/21/24 21:45 Review of Systems Constitutional: No symptom reported Ears, Nose, & Throat: No symptom reported Eyes: No symptom reported Neurological: Positional dizziness Pulmonary/Respiratory: No symptom reported Cardiovascular: No symptom reported Gastrointestinal: Mid abdominal pain Genitourinary: No symptom reported Musculoskeletal: No symptom reported Skin: No symptom reported Psychiatric: No symptom reported Endocrine: No symptom reported Hemotologic/Lymphatic: No symptom reported Vital Signs Vital Signs Date Time Temp Pulse Resp B/P (MAP) Pulse Ox O2 Delivery O2 Flow Rate FiO2 04/22/24 09:00 98.1 53 16 101/61 (74) 95 98.1 04/22/24 00:09 Room Air* 0 21 Physical Exam General Appearance: Cooperative. Well developed. Thin. In no acute distress Head Exam: Normal inspection Neck Exam: Normal inspection. Non-tender. Normal alignment Pulmonary/Respiratory: Chest non-tender. Clear bilateral breath sounds Cardiovascular/Chest: Regular rate and rhythm. S1, S2. Sinus bradycardia with associated first-degree AV block. No murmurs. No JVD. Peripheral Pulses: 2+ Radial (R). 2+ Radial (L). 2+ Pedal (R). 2+ Pedal (L) Abdominal Exam: Normal bowel sounds. Soft. Nontender. No hepatospenomegaly. No masses Ankle Exam: Negative ankle edema Lower extremities: Negative lower extremity edema Neuro/Mental Status: A&O x4. Coherent Thoughts/Psych: Normal thought pattern. Appropriate mood and affect. Good judgement and insight Appearance: In no acute distress Skin Exam: Normal inspection. Pale color. Warm. Dry Labs/Diagnostic Data Labs Test 04/22/24 05:50 04/22/24 05:42 04/21/24 17:17 04/21/24 16:03 Range/Units POC Glucose 80 70-106 mg/dl White Blood Count 4.1 L 4.4-10.8 10^3/uL Red Blood Count 3.07 L 4.5-5.90 10^6/uL Hemoglobin 9.9 L 13.5-17.5 g/dL Hematocrit 28.4 L 41.0-53.0 % Mean Corpuscular Volume 92.7 80.0-100.0 fL Mean Corpuscular Hemoglobin 32.3 H 28.0-32.0 pg Mean Corpuscular Hemoglobin Concent 34.9 32.0-36.0 g/dL Red Cell Distribution Width 12.6 11.8-14.3 % Platelet Count 94 L 140-450 10^3/uL Mean Platelet Volume 8.4 6.9-10.8 fL Neutrophils (%) (Auto) 46.6 37.0-80.0 % Lymphocytes (%) (Auto) 44.3 10.0-50.0 % Monocytes (%) (Auto) 5.1 0.0-12.0 % Eosinophils (%) (Auto) 3.0 0.0-7.0 % Basophils (%) (Auto) 1.0 0.0-2.0 % Neutrophils # (Auto) 1.9 1.6-8.6 10 ^3/uL Lymphocytes # (Auto) 1.8 0.4-5.4 10 ^3/uL Monocytes # (Auto) 0.2 0-1.3 10 ^3/uL Eosinophils # (Auto) 0.1 0-0.8 10 ^3/uL Basophils # (Auto) 0 0-0.2 10 ^3/uL Nucleated Red Blood Cells 0.1 % Sodium Level 143 136-145 mmol/L Potassium Level 3.9 3.5-5.1 mmol/L Chloride Level 111 H 98-107 mmol/L Carbon Dioxide Level 23 20-31 mmol/L Anion Gap 9 5-15 Blood Urea Nitrogen 33 H 9-23 mg/dL Creatinine 1.92 H 0.700-1.30 mg/dL Glomerular Filtration Rate Calc 35 >90 mL/min BUN/Creatinine Ratio 17.2 10.0-20.0 Serum Glucose 80 74-106 mg/dL Calcium Level 10.0 8.7-10.4 mg/dL Total Bilirubin 0.6 0.2-1.0 mg/dL Aspartate Amino Transferase (AST) 51 H 13-40 U/L Alanine Aminotransferase (ALT) 73 H 7-40 U/L Alkaline Phosphatase 30 L 46-116 U/L Total Protein 6.0 5.7-8.2 g/dL Albumin 4.1 3.2-4.8 g/dL Troponin I High Sensitivity 5 </=54 ng/L B-Type Natriuretic Peptide 73.75 0-100 pg/mL Test 04/21/24 14:49 Range/Units Urine Color Light-yellow Yellow Urine Clarity Clear Clear Urine pH 6.0 5.0-9.0 Urine Specific [place] 1.016 1.001-1.035 Urine Protein 3+ H Negative Urine Ketones 1+ H Negative Urine Blood 3+ H Negative /uL Urine Nitrite Negative Negative Urine Bilirubin Negative Negative Urine Urobilinogen Normal Negative mg/dL Urine Leukocyte Esterase Negative Negative /uL Urine RBC 34 0 - 3 /hpf Urine Microscopic WBC 2 0-3 /HPF Urine Squamous Epithelial Cells Few <5 /hpf Urine Bacteria None seen None Seen /hpf Urine Hyaline Casts Few 0 - 2 /lpf Urine Glucose 1+ H Normal mg/dL Assessment 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 Jama) The patient presents with likely beta-jonathan induced bradycardia and antihypertensive therapy induced hypotension. We reccommend discontinuation of home losartan therapy and bisoprolol. Initiate glucagon therapy and obtain a transthoracic echocardiogram to rule out structural heart disease. The patient appears euvolemic at this time. Obtain TSH level. In the setting of an unremarkable echocardiogram, there is no further cardiac workup indicated at this time. If patient continues symptomatic after discontinuation of antihypertensive therapy, we recommend an outpatient event monitor and BP log for further evaluation. Thank you for allowing us to participate in this patient's care. Please call if you have any questions or concerns. This medical document was created using an electronic medical record system with voice recognition software and computerized dictation system. Although this document has been carefully reviewed, there might still be some phonetic and typographical errors. Occasional wrong-word or ``sound-alike substitutions may have occurred due to the inherent limitations of voice recognition software. These areas are purely typographical due to imperfections of the software programs and do not reflect any compromise in the patient's medical care. Please read the chart carefully and recognize, using context, where these substitutions have occurred. Plan discussed with: Patient, Other NYHA Physical activity limitations: NA Date of Service: Apr 22, 2024 Billing Provider: SARAH TONY Cardiology Common Codes: [id number] INP/OBS CARE (High) SARAH TONY Apr 22, 2024 12:00
--- NOTE | 2024-04-22 16:14 | DVHDS2 ---
Discharge Summary Date of Admission Apr 21, 2024 at 21:35 Date of Discharge: Apr 22, 2024 Labs/Diagnostic Data: Laboratory Results Test 04/22/24 11:48 04/22/24 05:42 04/21/24 17:17 04/21/24 16:03 POC Glucose 110 mg/dl (70-106) White Blood Count 4.1 10^3/uL (4.4-10.8) Red Blood Count 3.07 10^6/uL (4.5-5.90) Hemoglobin 9.9 g/dL (13.5-17.5) Hematocrit 28.4 % (41.0-53.0) Mean Corpuscular Volume 92.7 fL (80.0-100.0) Mean Corpuscular Hemoglobin 32.3 pg (28.0-32.0) Mean Corpuscular Hemoglobin Concent 34.9 g/dL (32.0-36.0) Red Cell Distribution Width 12.6 % (11.8-14.3) Platelet Count 94 10^3/uL (140-450) Mean Platelet Volume 8.4 fL (6.9-10.8) Neutrophils (%) (Auto) 46.6 % (37.0-80.0) Lymphocytes (%) (Auto) 44.3 % (10.0-50.0) Monocytes (%) (Auto) 5.1 % (0.0-12.0) Eosinophils (%) (Auto) 3.0 % (0.0-7.0) Basophils (%) (Auto) 1.0 % (0.0-2.0) Neutrophils # (Auto) 1.9 10 ^3/uL (1.6-8.6) Lymphocytes # (Auto) 1.8 10 ^3/uL (0.4-5.4) Monocytes # (Auto) 0.2 10 ^3/uL (0-1.3) Eosinophils # (Auto) 0.1 10 ^3/uL (0-0.8) Basophils # (Auto) 0 10 ^3/uL (0-0.2) Nucleated Red Blood Cells 0.1 % Sodium Level 143 mmol/L (136-145) Potassium Level 3.9 mmol/L (3.5-5.1) Chloride Level 111 mmol/L (98-107) Carbon Dioxide Level 23 mmol/L (20-31) Anion Gap 9 (5-15) Blood Urea Nitrogen 33 mg/dL (9-23) Creatinine 1.92 mg/dL (0.700-1.30) Glomerular Filtration Rate Calc 35 mL/min (>90) BUN/Creatinine Ratio 17.2 (10.0-20.0) Serum Glucose 80 mg/dL (74-106) Hemoglobin A1c 4.8 % A1C (<5.7) Calcium Level 10.0 mg/dL (8.7-10.4) Magnesium Level 2.0 mg/dL (1.6-2.6) Total Bilirubin 0.6 mg/dL (0.2-1.0) Aspartate Amino Transferase (AST) 51 U/L (13-40) Alanine Aminotransferase (ALT) 73 U/L (7-40) Alkaline Phosphatase 30 U/L (46-116) Total Protein 6.0 g/dL (5.7-8.2) Albumin 4.1 g/dL (3.2-4.8) Thyroid Stimulating Hormone (TSH) 0.79 uIU/mL (0.55-4.78) Troponin I High Sensitivity 5 ng/L (</=54) B-Type Natriuretic Peptide 73.75 pg/mL (0-100) Test 04/21/24 14:49 Urine Color Light-yellow (Yellow) Urine Clarity Clear (Clear) Urine pH 6.0 (5.0-9.0) Urine Specific [place] 1.016 (1.001-1.035) Urine Protein 3+ (Negative) Urine Ketones 1+ (Negative) Urine Blood 3+ /uL (Negative) Urine Nitrite Negative (Negative) Urine Bilirubin Negative (Negative) Urine Urobilinogen Normal mg/dL (Negative) Urine Leukocyte Esterase Negative /uL (Negative) Urine RBC 34 /hpf (0 - 3) Urine Microscopic WBC 2 /HPF (0-3) Urine Squamous Epithelial Cells Few /hpf (<5) Urine Bacteria None seen /hpf (None Seen) Urine Hyaline Casts Few /lpf (0 - 2) Urine Glucose 1+ mg/dL (Normal) Other Laboratory Tests 04/22/24 05:42 Brief Hx & Hospital Course: HPI: 78-year-old male with multiple past medical history including congestive heart failure, lec-nmspxmu-oefdyjeru diabetes mellitus, hypertension, dyslipidemia, chronic thrombocytopenia, chronic kidney disease, arthritis, and umbilical hernia; Presents to [facility] ED with complaint of low blood pressure. The patient reports he was a local [facility] acquiring a cortisone injection of the right shoulder when he was found with a systolic blood pressure of 88 mmHg. Denies chest pain, palpitations, blurry vision, HAs, or syncopal events. Complains of positional dizziness from a sitting to standing position during the past two days. He also complains of mid abdominal pain without N/V/D/constipation. summary: Upon arrival to the emergency room he underwent a 12 lead electrocardiogram revealing a sinus bradycardia rhythm with an associated first- degree atrioventricular block at 52 bpm. Labs are notable for platelets 112, creatinine 1.95 likely CKD, heart rate in 50s. supervisor evaporator reviewed indicating a sinus bradycardia rhythm as low as 48 bpm without evidence of high- degree atrioventricular blocks or sinus pauses. The patient is currently taking losartan 25 q.d. and bisoprolol 5 mg b.i.d. cardiology consulted for symptomatic bradycardia. Patient was given glucagon IV 2 mg once, continuing home meds. Beta-blockers and antihypertensives are hold, washout. Results in improvement of symptoms and heart rate. Cardiology recommends discontinuing beta-jonathan and antihypertensives. Patient improves with sinus signs stable. Stable for discharge with plan below. 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 Medication induced hypotension Hx congestive heart failure Dmo-iarbjht-aduoqfnid diabetes mellitus Hypertension Dyslipidemia Chronic thrombocytopenia Chronic kidney disease Anemia in chronic disease Discharge Disposition: Home Discharge Instruct/Medications Diet: Cardiac 2g Na,low cholest Activity: No Restrictions, As Tolerated Follow Up/Referral: Follow up with PCP, Cardiology Medications: As below Discharge Statement: "Patient was advised to return to the ER or call 911 if any headaches, dizziness, shortness of breath, chest pain, abdominal pain, bleeding, fevers, or worsening of medical condition. Patient was counseled about treatment plan, medications, possible side effects, patientverbalized understanding. All questions were answered to the best of my ability. This discharge took greater then 30 minutes in planning, reviewing documentation, counseling the patient, and discussing with other team members." Date of Service: Apr 22, 2024 Billing Provider: RANI ONEIL MD Common Visit Codes: [id number] INP/OBS CARE(HIGH) RANI ONEIL MD Apr 22, 2024 16:14
--- NOTE | 2024-04-22 16:25 | DVHSR ---
APPROVED REPORT EXAM: Two-dimensional and M-mode echocardiogram with Doppler and color Doppler. Blood Pressure: 101/61 mmHg INDICATION Bradycardia RISK FACTORS Height: 5'8", Weight: 123 DIMENSIONS LVDd4.4 (3.8-5.7cm)LA (2D)3.9 (1.9-4.0cm)Aortic Root3.4 (2.0-3.7cm) LVDs3.1 (2.5-4.0cm)LA (MM) (1.9-4.0cm)Aortic Cusp Exc1.9 (1.5-2.0cm) EF (%) 55.0 (55-70%)Rt. Atrium3.7 (1.9-4.0cm)Asc. Aorta cm IVSd0.9 (0.7-1.1cm)RV (D) (1.8-2.4cm) PWd0.9 (0.7-1.1cm) Mitral Valve MitralMitral Stenosis E wave0.43m/sMV Mean GR.mmHg A wave0.53m/sMV Peak GR.mmHg E/A ratio0.82D MVAcm2 DECEL [id number] 1/2 Timems Aortic Valve Aortic ValveAortic Stenosis V10.66m/Karolyn Mean GR.2mmHg V20.97m/Karolyn Peak GR.4mmHg LVOT Diameter2.2 (1.8-2.4cm)Doppler AVA2.59cm2 Tricuspid Valve TR Velocity2.18m/s [id number] Other Information Quality : Technically LimitedRhythm : Technically limited study due to body habitus. Conclusion Technically good study. Sinus rhythm. Mild aortic root enlargement. Valves are normal. EF of 50% with normal RV function. Dopplers unremarkable. Mild TR. No pericardial effusion masses or vegetations.
== END 2024-04-22 18:30 | disposition home or self-care (01) | DRG 312 ==
LOC: EDBD 15:45 → ER 15:45 → OVERFLOW 21:35 → TELE-WESTW 23:35
PROVIDERS: ADMIT Nurse Practitioner Family; ATTEND Nurse Practitioner Family
DX: I95.2 Hypotension due to drugs (principal); N17.9 Acute kidney failure, unspecified; I13.0 Hypertensive heart and chronic kidney disease with heart failure and stage 1 through stage 4 chronic kidney disease, or unspecified chronic kidney disease; D69.6 Thrombocytopenia, unspecified; D63.1 Anemia in chronic kidney disease; E11.22 Type 2 diabetes mellitus with diabetic chronic kidney disease; I95.0 Idiopathic hypotension; N18.9 Chronic kidney disease, unspecified; E78.5 Hyperlipidemia, unspecified; M81.0 Age-related osteoporosis without current pathological fracture; I44.0 Atrioventricular block, first degree; I50.9 Heart failure, unspecified; Z79.84 Long term (current) use of oral hypoglycemic drugs; Z82.49 Family history of ischemic heart disease and other diseases of the circulatory system; Z85.46 Personal history of malignant neoplasm of prostate; Z79.899 Other long term (current) drug therapy; Z98.42 Cataract extraction status, left eye; Z98.41 Cataract extraction status, right eye
CPT/HCPCS: 36415; 80048; 80053; 81001; 82962; 83036; 83735; 83880; 84443; 84484; 85025; 93005; 93306; 96360; G0378

== ENCOUNTER → 2024-10-18 | Emergency (ER) | payer OTHER ==
[~2024-10-18] MED LIST changes: -CEPH-510 PO; -LOSA-534 PO; -TRIA0.02 TOP
[2024-10-18 15:41] VITALS: PULSE 59
--- NOTE | 2024-10-18 15:46 | ECG ---
[facility] Test Date: 2024-10-18 Test Time: 15:41:03 Pat Name: KADY WOODS Department: ED Room: Gender: M Pot Puncher: : 1945 Requested By: ELICEO TYLER Order Number: [id number] Reading MD: Jerson Jama Measurements Intervals [place] Rate: 59 P: 83 RI: 52 QRS: 99 QRSD: 98 T: 166 QT: 354 QTc: 351 Interpretive Statements Sinus rhythm Short RI interval Right axis deviation Low voltage, precordial leads Abnormal T, consider ischemia, diffuse leads Artifact in lead(s) I,II,III,aVR,aVL,aVF,V1,V2 Electronically Signed On 10-18-2024 18:50:33 PDT by Jerson Jama Please click the below link to view image of tracing.
== END | disposition left against medical advice (07) ==
LOC: EDUNIT# 15:32 → EDBD 15:33 → ER 15:33
DX: R42 Dizziness and giddiness (principal); Z53.21 Procedure and treatment not carried out due to patient leaving prior to being seen by health care provider
CPT/HCPCS: 93005

== ENCOUNTER 2025-01-04 06:23 | Emergency (ER) | payer OTHER ==
[~2025-01-04] VITALS: Ht 185.4 cm; Wt 54.5 kg
--- NOTE | 2025-01-04 06:38 | ECG ---
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
--- NOTE | 2025-01-04 06:38 | ED.PDOC ---
History of Present Illness HPI Comments This is a 79 year old male WILSONA presenting to the ED with chief complaint of generalized weakness. EMS reports Fire department had arrived to patient's home after being called for assistance and noted patient is unable to get up on his own due to having generalized weakness with associated dizziness. EMS relays that they were called out when the patient then had a near-syncopal episode when Fire had attempted to ambulate the patient. Patient states he has been ill for the past 3 days with generalized weakness, chills, and associated SOB with exertion, being unable to get up from his couch. Patient denies any N/V/D, chest pain, headache, syncope, or fever. Time Seen by MD: 06:32 Reviewed Notes: Nurses Notes, Stereo Compiler Notes, Medications, Allergies Allergies: Coded Allergies: NO KNOWN ALLERGIES (Unverified , 05/30/22) Home Meds Reported Medications Rosuvastatin Calcium (Rosuvastatin Calcium) 20 Mg Tab, 1 TAB PO 05/31/22 Information Source: Patient, Emergency Med Personnel Mode of Arrival: EMS Severity: Moderate Timing: Days Duration: Since onset Prehospital treatment: None Past Medical History PAST MEDICAL HISTORY: Cancer (Prostate), CHF, CKF, DM, High Lipids, Hypotension Surgical History: Tonsillectomy Surgical History (Other): Right Knee surgery, Prostate surgery Family History Family History: Reviewed,noncontributory to illness, Unknown Social History Smoker: Non-Smoker Alcohol: Denies ETOH Use Drugs: Denies Drug Use Lives In: Home Constitutional: reports: chills, weakness; denies: diaphoresis, fatigue, fever, malaise, sweats, others EENTM: denies: blurred vision, double vision, ear bleeding, ear discharge, ear drainage, ear pain, ear ringing, eye pain, eye redness, hearing loss, mouth pain, mouth swelling, nasal discharge, nose bleeding, nose congestion, nose pain, photophobia, tearing, throat pain, throat swelling, voice changes, others Respiratory: reports: SOB with excertion; denies: cough, hemoptysis, orthopnea, SOB at rest, shortness of breath, stridor, wheezing, others Cardiovascular: reports: others (Near syncope); denies: chest pain, dizzy spells, diaphoresis, Dyspnea on exertion, edema, irregular heart beat, left arm pain, lightheadedness, palpitations, PND, syncope Gastrointestinal: denies: abdomen distended, abdominal pain, blood streaked bowels, constipated, diarrhea, dysphagia, difficulty swallowing, hematemesis, melena, nausea, poor appetite, poor fluid intake, rectal bleeding, rectal pain, vomiting, others Genitourinary: denies: burning, dysuria, flank pain, frequency, hematuria, incontinence, penile discharge, penile sore, pain, testicle pain, testicle swelling, urgency, others Neurological: reports: dizziness; denies: fainting, headache, left sided numbness, left sided weakness, numbness, paresthesia, pre-existing deficit, right sided numbness, right sided weakness, seizure, speech problems, tingling, tremors, weakness, others Musculoskeletal: denies: back pain, gout, joint pain, joint swelling, muscle pain, muscle stiffness, neck pain, others Integumetry: denies: bruises, change in color, change in hair/nails, dryness, laceration, lesions, lumps, rash, wounds, others Allergic/Immunocompromised: denies: Difficulty Healing, Frequent Infections, Hives, Itching, others Hematologic/Lymphatic: denies: anemia, blood clots, easy bleeding, easy bruising, swollen glands, others Endocrine: denies: excessive hunger, excessive sweating, excessive thirst, excessive urination, flushing, intolerance to cold, intolerance to heat, unexplained weight gain, unexplained weight loss, others Psychiatric: denies: anxiety, bipolar disorder, depression, hopeless, panic disorder, schizophrenia, sleepless, suicidal, others All Other Systems: Reviewed and Negative Physical Exam General Appearance: Moderate Distress HEENT: Pale Conjuntivae (L), Pale Conjuntivae (R), Pharynx Normal, TMs Normal Neck: Full Range of Motion, Non-Tender, Normal, Normal Inspection Respiratory: Chest Non-Tender, Lungs Clear, No Accessory Muscle Use, No Respiratory Distress, Normal Breath Sounds Cardiovascular: No Edema, No JVD, No Murmur, No Gallop, Normal Peripheral Pulses, Regular Rate/Rhythm Breast Exam: Deferred Gastrointestinal: No Organomegaly, Non Tender, No Pulsatile Mass, Normal Bowel Sounds, Soft Genitalia: Deferred Pelvic: Deferred Rectal: Deferred Extremities: No calf tenderness, Normal capillary refill, No pedal edema Musculoskeletal : Apperance: Normal Neurologic: polisher and sander II-XII nml as Tested, Motor Weakness, Normal Affect, Normal Mood, No Sensory Deficits Cerebellar Function: Normal Reflexes: Normal Skin: Dry, Pallor, Warm Lymphatic: No Adenopathy Was a procedure done? Was a procedure done?: No EKG EKG : Pulse Rate (adult): 74 Stewart: Normal Cardiac Rhythm: NSR Block: None Comments Low voltage Differential Dx Considerations may include: Generalized weakness, electrolyte imbalance, dehydration X-Ray, Labs, Meds, VS Vital Signs Date Time Temp Pulse Resp B/P (MAP) Pulse Ox O2 Delivery O2 Flow Rate FiO2 01/04/25 08:35 79 16 97 Room Air* 0 21 01/04/25 08:35 98.7 79 16 98/63 (75) 97 98.7 01/04/25 06:38 74 01/04/25 06:30 98.7 78 16 107/71 94 98.7 01/04/25 06:24 74 Lab Test 01/04/25 07:58 01/04/25 06:51 Range/Units Troponin I High Sensitivity 5 7 </=54 ng/L White Blood Count 6.7 4.4-10.8 10^3/uL Red Blood Count 3.61 L 4.5-5.90 10^6/uL Hemoglobin 11.3 L 13.5-17.5 g/dL Hematocrit 32.9 L 41.0-53.0 % Mean Corpuscular Volume 91.1 80.0-100.0 fL Mean Corpuscular Hemoglobin 31.5 28.0-32.0 pg Mean Corpuscular Hemoglobin Concent 34.5 32.0-36.0 g/dL Red Cell Distribution Width 12.5 11.8-14.3 % Platelet Count 114 L 140-450 10^3/uL Mean Platelet Volume 8.9 6.9-10.8 fL Neutrophils (%) (Auto) 78.9 37.0-80.0 % Lymphocytes (%) (Auto) 12.8 10.0-50.0 % Monocytes (%) (Auto) 5.3 0.0-12.0 % Eosinophils (%) (Auto) 2.6 0.0-7.0 % Basophils (%) (Auto) 0.4 0.0-2.0 % Neutrophils # (Auto) 5.3 1.6-8.6 10 ^3/uL Lymphocytes # (Auto) 0.9 0.4-5.4 10 ^3/uL Monocytes # (Auto) 0.4 0-1.3 10 ^3/uL Eosinophils # (Auto) 0.2 0-0.8 10 ^3/uL Basophils # (Auto) 0 0-0.2 10 ^3/uL Nucleated Red Blood Cells 0.1 % Sodium Level 139 136-145 mmol/L Potassium Level 4.0 3.5-5.1 mmol/L Chloride Level 102 98-107 mmol/L Carbon Dioxide Level 23 20-31 mmol/L Anion Gap 14 5-15 Blood Urea Nitrogen 39 H 9-23 mg/dL Creatinine 2.48 H 0.700-1.30 mg/dL Glomerular Filtration Rate Calc 26 >90 mL/min BUN/Creatinine Ratio 15.7 10.0-20.0 Serum Glucose 94 74-106 mg/dL Lactic Acid Level 2.0 0.4-2.0 mmol/L Calcium Level 10.7 H 8.7-10.4 mg/dL Current Medications Medications (Trade) Dose Ordered Sig/Irma Route Start Time Stop Time Status Last Admin Sodium Chloride 1,000 ml @ 1,000 mls/hr Q1H ONCE IV 01/04/25 06:45 01/04/25 07:44 DC 01/04/25 08:24 IV Hep-Lock was established The CBC shows some anemia with a hemoglobin of 11.3 and hematocrit of 32.9 The chemistry panel shows a BUN of 39 and a creatinine of 2.48 indicating some dehydration. This also could be some renal insufficiency as well as autonomic dysfunction The patient will be admitted at this time Chest XR indicates: Ovoid opacity in the medial aspect of the left lung apex, possibly due to overlying soft tissue density. Infectious or inflammatory etiology not excluded. Correlate with clinical findings. Follow-up radiographs or CT could be obtained if clinically indicated. At this time, the patient will be transferred to [place] We did call them and they gave us an authorization number of [id number] We have discussed the findings with the patient Images Reviewed?: Images reviewed and evaluated by me Time of 1ST Reevaluation: 10:44 Reevaluation 1ST: Unchanged Patient Education/Counseling: Diagnosis, Treatment, Prognosis Family Education/Counseling: No Family Present SEPSIS Sepsis Screen Physician Orders Chest Portable (01/04/25 06:31) Urinalysis (01/04/25 06:31) Heplock Iv (01/04/25 06:31) Outside Parts Salesman (01/04/25 06:31) Blood Pressure (01/04/25 06:31) Pulse Oximetry (01/04/25 06:31) Blood Culture (01/04/25 06:31) Troponin-I Hs (01/04/25 09:31) Electrocardigram (01/04/25 07:31) Electrocardigram (01/04/25 09:31) Vital Signs Date Time Temp Pulse Resp B/P (MAP) Pulse Ox O2 Delivery O2 Flow Rate FiO2 01/04/25 08:35 79 16 97 Room Air* 0 21 01/04/25 08:35 98.7 79 16 98/63 (75) 97 98.7 01/04/25 06:38 74 01/04/25 06:30 98.7 78 16 107/71 94 98.7 01/04/25 06:24 74 Laboratory Tests Test 01/04/25 06:51 Lactic Acid Level 2.0 mmol/L (0.4-2.0) White Blood Count 6.7 10^3/uL (4.4-10.8) Medications Medications Dose Ordered Sig/Irma Route Start Time Stop Time Status Last Admin Dose Admin Sodium Chloride 1,000 ml @ 1,000 mls/hr Q1H ONCE IV 01/04/25 06:45 01/04/25 07:44 DC 01/04/25 08:24 Departure 1 Departure Time of Disposition: 10:43 Impression: Primary Impression: Autonomic dysfunction Additional Impressions: Generalized weakness Anemia Qualified Codes: D64.9 - Anemia, unspecified Disposition: 51 HOSPICE/MEDICAL FACILITY Condition: Fair Critical Care Note Critical Care Time?: No Stability Stability form required: No Heart Score Heart Score: Heart Score Response (Comments) Value History N/A 0 EKG N/A 0 Age N/A 0 Risk Factors N/A 0 Troponin N/A 0 Total 0 I personally scribed for ALCIDES DIAZ MD ([email or web address]) on 01/04/25 at 06:38. Electronically submitted by Keanu Javier ([email or web address]). I personally scribed for ALCIDES DIAZ MD ([email or web address]) on 01/04/25 at 07:40. Electronically submitted by Keanu Javier ([email or web address]). ALCIDES DIAZ MD Jan 04, 2025 06:38
[2025-01-04 07:18] LABS: Hematocrit 32.9 % (41.0-53.0); Hemoglobin 11.3 g/dL (13.5-17.5); Mean Corpuscular Hemoglobin 31.5 pg (28.0-32.0); Mean Corpuscular Volume 91.1 fL (80.0-100.0); Nucleated Red Blood Cells % 0.1 %
[2025-01-04 07:26] LABS: Chloride 102 mmol/L (98-107); Potassium 4.0 mmol/L (3.5-5.1); Sodium 139 mmol/L (136-145)
[2025-01-04 07:27] LABS: Anion Gap 14 (5-15); Carbon Dioxide 23 mmol/L (20-31)
[2025-01-04 07:32] LABS: BUN/Creatinine Ratio 15.7 (10.0-20.0); Glucose 94 mg/dL (74-106)
--- NOTE | 2025-01-04 07:33 | DVH ---
CLINICAL INFORMATION: 79 years old, Male; weakness. TECHNIQUE: Single AP portable chest radiograph was obtained. COMPARISON: XY CHEST PORTABLE on DOS: 05/30/22 FINDINGS: Lungs: Ovoid opacity in the medial aspect of the left lung apex measuring up to 3.7 cm, may be due to overlying soft tissue density. Infectious or inflammatory etiology not excluded. Small calcified granuloma in the left lung apex. Cardiac: Heart size is within normal limits. Pulmonary vasculature: Unremarkable. Mediastinum/lauren: Unremarkable. Bones: No acute osseous abnormality identified. Other: No other significant findings. IMPRESSION: Ovoid opacity in the medial aspect of the left lung apex, possibly due to overlying soft tissue density. Infectious or inflammatory etiology not excluded. Correlate with clinical findings. Follow-up radiographs or CT could be obtained if clinically indicated.
[2025-01-04 07:35] LABS: Blood Urea Nitrogen 39 mg/dL (9-23); Calcium 10.7 mg/dL (8.7-10.4)
[2025-01-04] MEDS: SODIUM CHLORIDE 0.9% 1,000 ML IV ONE (08:24)
[2025-01-04 08:35] VITALS: PULSE 79; RESP 16; O2SAT 97
--- NOTE | 2025-01-04 11:44 | ECG ---
[facility] Test Date: 2025-01-04 Test Time: 07:21:18 Pat Name: KADY WOODS Department: ED Room: Gender: Validation Engineer: [place]ETT : 1945 Requested By: ALCIDES DIAZ Order Number: [id number] Reading MD: Jerson Jama Measurements Intervals [place] Rate: 69 P: 0 NV: 0 QRS: 92 QRSD: 97 T: 36 QT: 415 QTc: 445 Interpretive Statements Atrial fibrillation Right axis deviation Borderline T wave abnormalities Electronically Signed On 01-05-2025 15:46:03 PST by Jerson Jama Please click the below link to view image of tracing.
[2025-01-04 12:33] VITALS: BP 122/67; PULSE 82; RESP 14; TEMP 98.2; O2SAT 98
[2025-01-04 13:38] LABS: Urine Protein, UAD Negative (Negative)
== END 2025-01-04 14:05 | disposition short-term general hospital (02) ==
LOC: EDBD 06:23 → ER 06:23
DX: G90.9 Disorder of the autonomic nervous system, unspecified (principal); R53.1 Weakness; D64.9 Anemia, unspecified; E11.22 Type 2 diabetes mellitus with diabetic chronic kidney disease; N18.9 Chronic kidney disease, unspecified; I50.9 Heart failure, unspecified; Z90.89 Acquired absence of other organs
CPT/HCPCS: 36415; 71045; 80048; 81001; 82947; 83605; 84484; 85025; 87040; 93005; 96360; 99285; J7030